=== PATIENT | male | born 1990 | race Two or more races ===

== ENCOUNTER 2019-05-29 05:56 | Emergency (ER) | payer BC ==
[~2019-05-29] VITALS: Ht 167.6 cm; Wt 102.5 kg
--- NOTE | 2019-05-29 06:06 | NUR ---
RECEIVED PATIENT FROM HOME. WITH COMPLAINTS OF SORE THROAT WITH L FACE TO L EAR PAIN. HAD FEVER 104F, +N/V 2 DAYS PRIOR TO ADMISSION. KEPT ON BED COMFORTABLY.
--- NOTE | 2019-05-29 06:20 | NUR ---
SEEN AND EXAMINED BY
[2019-05-29] MEDS ORDERED: KETOROLAC TROMETHAMINE INJ 60 MG/2 ML VIAL IM ONE (06:30)
[2019-05-29] MEDS ORDERED: KETOROLAC TROMETHAMINE INJ 30 MG/ML VIAL ONE (06:32)
--- NOTE | 2019-05-29 06:50 | NUR ---
DISCHARGE INSTRUCTIONS GIVEN TO PATIENT. INSTRUCTED PATIENT TO CHECK WITH PRIMARY PHYSICIAN FOR FOLLOW UP. INSTRUCTED TO GO TO ER OR CALL 911 FOR NEW OR WORSENING CONDITION. PATIENT VERBALIZED UNDERSTANDING. PATIENT SIGNED THE DISCHARGE PAPERS. AMBULATORY. LEAVED THE FACILITY AT THIS TIME.
[2019-05-29 06:55] VITALS: BP 124/74
== END 2019-05-29 06:56 | disposition home or self-care (01) ==
LOC: ER 05:59
DX: J02.9 Acute pharyngitis, unspecified (principal)
CPT/HCPCS: 96372; 99283; J1885